=== PATIENT | female | born 1950 | race Caucasian/White ===

== ENCOUNTER → 2024-04-25 | Outpatient (CLI) | payer MEDICARE, MEDICAID, SELFPAY ==
[2024-04-25 10:27] LABS: Anion Gap 6 (7-16); BUN/Creatinine Ratio 22 Ratio (12-20); Blood Urea Nitrogen 20 mg/dL (9-23); Calcium 10.3 mg/dL (8.3-10.6); Carbon Dioxide 28.8 mMol/L (20.0-31.0); Chloride 113 mMol/L (98-107); Creatinine (Component) 0.9 mg/dL (0.6-1.3); Glucose 107 mg/dL (74-106); Osmolality,Calculated 296 (275-295); Potassium 5.2 mMol/L (3.4-5.1); Sodium 148 mMol/L (136-145); eGFR > 60 See Note
== END | disposition home or self-care (01) ==
PROVIDERS: PCP Urology; Referring Provider Urology; Visit Provider Urology
DX: C64.1 Malignant neoplasm of right kidney, except renal pelvis (principal); C64.2 Malignant neoplasm of left kidney, except renal pelvis
CPT/HCPCS: 36415; 80048

== ENCOUNTER → 2024-05-11 | Outpatient (CLI) | payer MEDICARE, MEDICAID, SELFPAY ==
--- NOTE | 2024-05-11 13:00 | XR_ITS ---
Examination: CT abdomen with intravenous contrast CT pelvis with intravenous contrast 2-D coronal reconstructions 2-D sagittal reconstructions Date and time of exam:May 11, 2024 1358 hrs. Comparison April 07, 2023 Indications: Diagnosis renal cell carcinoma post nephrectomy 19 years ago, restaging. CTDI: vol (mGy) 38 DLP: (mGycm) 2109 Technique: Multiple axial sections of the abdomen and pelvis have been obtained. 64 slice high-resolution scanner used. 3 mm axial sections have been obtained, post intravenous injection 40 cc [id number] 2-D sagittal, coronal reconstructions obtained. Low dose protocols were performed. One or more of the following dose reduction techniques were used; automated exposure control, adjustment of the mA and/or KV according to patient size, use of iterative reconstruction technique. 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
== END | disposition home or self-care (01) ==
LOC: SCAT 12:44
PROVIDERS: PCP Family Medicine; Referring Provider Urology; Visit Provider Urology
DX: C64.1 Malignant neoplasm of right kidney, except renal pelvis (principal); C64.2 Malignant neoplasm of left kidney, except renal pelvis
CPT/HCPCS: 74177; A4649; Q9967

== ENCOUNTER → 2024-05-31 | Outpatient (CLI) | payer MEDICARE, MEDICAID, SELFPAY ==
[2024-05-30 11:01] LABS: Basophils % (Auto) 1 % (0-2.5); Eosinophils # (Auto) 0.4 Thou/mm3 (0.0-0.5); Eosinophils % (Auto) 5 % (0-10); Hemoglobin 12.7 g/dL (12.0-16.0); Immature Granulocytes % (Auto) 0 % (0-0); Immature Granulocytes Auto 0.02 Thou/mm3 (0.00-0.00); Lymphocytes # (Auto) 2.2 Thou/mm3 (1.0-4.8); Lymphocytes % (Auto) 29 % (10-50); Mean Corpuscular HGB Conc 32.6 g/dl (31.0-37.0); Mean Corpuscular Volume 86 fL (80-100); Monocytes # (Auto) 0.6 Thou/mm3 (0.0-0.8); Monocytes % (Auto) 8 % (0-12); Neutrophils # (Auto) 4.3 Thou/mm3 (1.8-7.7); Neutrophils % (Auto) 58 % (37-80); Nucleated Red Blood Cell % 0 /100 WBC (0); Platelet Count 250 Thou/mm3 (140-440); RDW Standard Deviation 43.2 fL (36.4-46.3); Red Blood Count 4.54 Miln/mm3 (4.00-5.20); White Blood Count 7.5 Thou/mm3 (3.6-11.0)
[2024-05-30 11:11] LABS: Partial Thromboplastin Time 27.7 Seconds (22.0-36.0); Prothrombin Time 11.3 Seconds (9.0-12.2)
--- NOTE | 2024-05-31 09:30 | XR_ITS ---
Examination: Thyroid sonogram complete TECHNIQUE: Grayscale sonographic images thyroid lobes Exam date and time: May 31, 2024 0942 hours INDICATIONS: History thyroid nodules, preop thyroid biopsy. FINDINGS: Right thyroid 5.5 cm Upper pole nodule 13 x 14 mm Midpole nodule 12 x 10 mm, 8 x 7 mm, 4 x 3 mm Left thyroid 6.2 cm Lower pole nodules 24 x 19 mm, 9 x 11 mm IMPRESSION: Bilateral thyroid nodules as above
--- NOTE | 2024-05-31 09:30 | XR_ITS ---
Examination: Ultrasound-guided fine needle percutaneous aspiration thyroid nodule, left thyroid. Thyroid sonography, limited Exam date and time: May 31, 2024 0954 hours INDICATIONS: Thyroid sonogram May 31, 2024 2.4 cm left thyroid nodule. Technique: A timeout was completed verifying correct patient, procedure, site, positioning and special equipment if applicable. The patient was placed in supine position for the thyroid fine needle percutaneous aspiration The patient's left neck was prepped and draped in sterile fashion. Maximum barrier sterile technique, hand hygiene, ultrasound sterile technique. 1% lidocaine was used to anesthetize the skin and subcutaneous tissues to the patient's right thyroid nodule. Multiple fine needle aspirations were performed and multiple thyroid specimens placed in preservative according to the irm protocol. Specimens appears satisfactory. The attending radiologist was present for the entire procedure. Estimated blood loss 3 cc. The patient tolerated the procedure well and there were no complications. Impression: Successful ultrasound-guided fine-needle percutaneous aspiration thyroid nodule, left thyroid nodule.
== END | disposition home or self-care (01) ==
LOC: SIRX 09:11
PROVIDERS: Radiology Diagnostic Radiology; PCP Family Medicine; Referring Provider Family Medicine; Visit Provider Family Medicine
DX: E04.1 Nontoxic single thyroid nodule (principal); Z01.812 Encounter for preprocedural laboratory examination
CPT/HCPCS: 10005; 36415; 76536; 85025; 85610; 85730

== ENCOUNTER → 2024-06-20 | Outpatient (BNVA) | payer MEDICARE, MEDICAID, SELFPAY | END | disposition home or self-care (01) | PROVIDERS: PCP Family Medicine; Referring Provider Family Medicine; Visit Provider Urology | DX: C64.1 Malignant neoplasm of right kidney, except renal pelvis (principal); D30.02 Benign neoplasm of left kidney; Z90.5 Acquired absence of kidney; I10 Essential (primary) hypertension; E11.9 Type 2 diabetes mellitus without complications; E66.9 Obesity, unspecified; Z68.41 Body mass index [BMI] 40.0-44.9, adult | CPT/HCPCS: 81003; 99212; G0463 ==